=== PATIENT | female | born 1950 | race Caucasian/White ===

== ENCOUNTER 2024-10-04 07:37 | Day surgery (SDC) | payer MEDICARE, BC, SELFPAY ==
[2024-10-04 07:51] VITALS: BMI 31.4
[2024-10-04 08:17] VITALS: BP 158/85; PULSE 73; RESP 18; TEMP 36.2; O2SAT 97
--- NOTE | 2024-10-04 08:33 | W.PM.H&PU ---
History & Physical Update History & Physical Update H&P Reviewed and patient assessed: No changes noted
[2024-10-04] MEDS: LACTATED RINGERS 1000 ML 1,000 ML 100 ML IV (08:35)
[2024-10-04] MEDS: SODIUM CHLORIDE 0.9 % (FLUSH) 10 ML SYRINGE IVF (08:35)
--- NOTE | 2024-10-04 09:34 | SUR.OPER ---
Fluid deficit: 105 ml
[2024-10-04 09:45] VITALS: BP 117/75; PULSE 60; RESP 18; TEMP 36.4; O2SAT 94
--- NOTE | 2024-10-04 09:45 | P.ANES_ITS ---
Anesthesia Charges Start Date/Time Anesthesia Start Date: 10/04/24 Anesthesia Start Time: 09:05 Stop Date/Time Anesthesia Stop Date: 10/04/24 Anesthesia Stop Time: 09:45 Coding CPT Codes CPT Codes: ANESTH HYSTEROSCOPE/GRAPH - 13292 ([id number]) P2 - PATIENT W/MILD SYST DISEASE, QK - FRAME STRAIGHTENER 2-4 CNCRNT ANES PROC, QX - MEDICAL RECRUITER SVC W/ MD MED DIRECTION
--- NOTE | 2024-10-04 09:45 | W.ANESCHARGE ---
Anesthesia Charges Start Date/Time Anesthesia Start Date: 10/04/24 Anesthesia Start Time: 09:05 Stop Date/Time Anesthesia Stop Date: 10/04/24 Anesthesia Stop Time: 09:45 Coding CPT Codes CPT Codes: ANESTH HYSTEROSCOPE/GRAPH - 45376 ([id number]) P2 - PATIENT W/MILD SYST DISEASE, QK - ELECTRICAL CAD TECHNICIAN 2-4 CNCRNT ANES PROC, QX - TEACHER ADVISOR SVC W/ MD MED DIRECTION
--- NOTE | 2024-10-04 09:52 | P.GYNPRC_ITS ---
Procedure Note Date of procedure: 10/04/[address] [facility] bill your pro fee for this procedure?: Yes Pre-op diagnosis: Endometrial polyps noted on recent imaging Post-op diagnosis: Endometrial polyps Procedure: Hysteroscopy, polypectomy, visual dilation and curettage Anesthesia: local Complications: None Surgeon: Aneta Weston MD Estimated blood loss (mL): 0 IV fluids (mL): 300 Urine Output (mL): 5 Pathology: specimen obtained, sent to pathology (Endometrial curettings) Condition: stable Disposition: same day Findings: 1. On exam under anesthesia, there was a constriction in the vagina noted around the vaginal fornix, but cervix was not adherent to this and we accessible after being grasped by tenaculum. Vagina was otherwise normal in appearance. Bimanual exam was limited by patient habitus and contraction in the upper vagina. 2. Upon hysteroscopy, survey of the endometrial cavity revealed 2 subcentimeter polyps in the anterior uterus. Uterine cavity was normal in shape and endometrium was otherwise normal / atrophic in appearance. Endocervix was normal in appearance. There is a tiny pedunculated cyst in the lower endocervix containing only clear fluid. Saline deficit 105 mL Procedure Description: Procedure in detail: Patient was taken to the operating room with IV running. She was positioned in dorsal lithotomy position with her legs fully supported in Yellofin stirrups. Monitored anesthesia care was administered. She was prepped and draped in the usual sterile fashion. Exam under anesthesia was performed for the above-noted findings. Speculum was inserted. Cervix visualized and grasped along the anterior lip with a single-tooth tenaculum. Cervix was serially dilated to accommodate the TRUCLEAR hysteroscope. This was assembled with saline inflow and outflow in place. The line was flushed of bubbles. The hysteroscope was advanced through the cervix into the endometrial cavity for the above noted findings. The tissue morcellator was then inserted through the operating channel. Window lock was performed. Under direct visualization, the endometrial cavity was circumferentially curetted with the tissue morcellator. The hysteroscope and morcellator were then removed from the uterus. Tenaculum was removed from the anterior lip of cervix. Hemostasis was noted. Patient tolerated procedure well. She was taken to recovery area in stable condition.
--- NOTE | 2024-10-04 09:53 | P.ANES_ITS ---
Anesthesia Charges Start Date/Time Anesthesia Start Date: 10/04/24 Anesthesia Start Time: 09:05 Stop Date/Time Anesthesia Stop Date: 10/04/24 Anesthesia Stop Time: 09:45 Summary Extremes of Age - Over 70 or under 1: MDA Coding CPT Codes CPT Codes: ANESTH HYSTEROSCOPE/GRAPH - 47231 ([id number]) QK - NETWORKING SPECIALIST 2-4 CNCRNT ANES PROC, QX - PANEL INSTALLER SVC W/ MD MED DIRECTION, P2 - PATIENT W/MILD SYST DISEASE Additional Codes: Summary - Extremes of Age - Over 70 or under 1: MDA ([id number])
[2024-10-04 10:00] VITALS: BP 129/83; PULSE 52; RESP 18; O2SAT 97
[2024-10-04 10:15] VITALS: BP 141/71; PULSE 59; RESP 16; O2SAT 99
[2024-10-04 10:30] VITALS: BP 145/75; PULSE 61; RESP 16; O2SAT 97
[2024-10-04 11:00] VITALS: BP 160/79; PULSE 69; RESP 16; O2SAT 96
== END 2024-10-04 11:14 | disposition home or self-care (01) ==
LOC: OR 07:39
PROVIDERS: PCP Family Medicine; Visit Provider Obstetrics & Gynecology
PROC: 0UDB8ZZ Extraction of Endometrium, Via Natural or Artificial Opening Endoscopic (ICD-10-PCS; CPT 58558; principal; 2024-10-04 08:45)
DX: N84.0 Polyp of corpus uteri (principal)
CPT/HCPCS: 58558; 00952; 36415; 86850; 86900; 86901; 88305; 99100; C1782; J1100; J1885; J2405; J2704; J3010; J7120

== ENCOUNTER 2024-10-09 08:30 | Outpatient (CLI) | payer MEDICARE, BC, SELFPAY | END 2024-10-09 08:31 | disposition home or self-care (01) | PROVIDERS: PCP Family Medicine; Visit Provider Obstetrics & Gynecology | DX: N39.0 Urinary tract infection, site not specified (principal); B96.1 Klebsiella pneumoniae [K. pneumoniae] as the cause of diseases classified elsewhere | CPT/HCPCS: 87086 ==